=== PATIENT | female | born 1985 | race Caucasian/White ===

== ENCOUNTER → 2017-12-02 | Outpatient (CLI) | payer OTHER ==
--- NOTE | 2017-12-02 09:52 | RAD ---
Indication: Elevated liver function test Technique: Grayscale, color Doppler and spectral waveform images of the abdomen obtained. Comparison: None Findings: Visualized pancreas is within normal limits. IVC is patent. Liver is enlarged in size measuring 19 cm in craniocaudal dimension with diffusely increased echogenicity and decreased through transmission. Main portal vein is patent. No gallstones. No pericholecystic fluid or gallbladder wall thickening. CBD measures 4 mm and is within normal limits. Right kidney measures 11.3 cm in length without hydronephrosis. Spleen measures 11 cm in length and is normal in size. Left kidney measures 12 cm in length without hydronephrosis. No aortic aneurysm. Impression: 1. Mild hepatomegaly with hepatic steatosis. 2. No cholelithiasis or sonographic evidence of acute cholecystitis.
== END | disposition home or self-care (01) ==
LOC: US 07:25
PROVIDERS: ATTEND Family Medicine
DX: K76.0 Fatty (change of) liver, not elsewhere classified (principal); R16.0 Hepatomegaly, not elsewhere classified
CPT/HCPCS: 76700

== ENCOUNTER 2018-04-15 10:27 | Emergency (ER) | payer OTHER ==
[~2018-04-15] VITALS: Ht 162.6 cm; Wt 93.0 kg
[2018-04-15] MEDS ORDERED: IV NORMAL SALINE 1,000ML 1,000 ML IV SCH (11:09)
[2018-04-15] MEDS ORDERED: KETOROLAC 30 MG/ML VIAL. IV ONE (11:15)
[2018-04-15] MEDS ORDERED: ONDANSETRON PF 4 MG/2 ML VIAL. IV ONE (11:15)
[2018-04-15 11:38] LABS: BASO % 1 % (0-3); EOS # 0.2 x10^3/uL (0.0-0.7); EOS % 3 % (0-3); HEMATOCRIT 38.2 % (36.0-47.0); HEMOGLOBIN 12.9 g/dL (12.0-15.5); LYMPH # 3.4 x10^3/uL (1.0-4.8); LYMPH % 52 % (24-48); MEAN CORPUSCULAR HEMOGLOBIN 28 pg (25-35); MEAN CORPUSCULAR HGB CONC 34 g/dL (31-37); MEAN CORPUSCULAR VOLUME 83 fL (79-100); MONO # 0.4 x10^3/uL (0.0-1.1); MONO % 7 % (0-9); NEUT # 2.5 x10^3uL (1.8-7.7); NEUT % 38 % (31-73); PLATELET COUNT 143 x10^3/uL (140-400); RED BLOOD COUNT 4.61 x10^6/uL (3.50-5.40); RED CELL DISTRIBUTION WIDTH 13.8 % (11.5-14.5); WHITE BLOOD COUNT 6.5 x10^3/uL (4.0-11.0)
[2018-04-15 11:46] LABS: ALBUMIN/GLOBULIN RATIO 0.7 (1.0-1.7); CALCIUM 8.4 mg/dL (8.5-10.1); CREATININE 1.1 mg/dL (0.6-1.0); GFR 57.2; POTASSIUM 3.7 mmol/L (3.5-5.1); TOTAL BILIRUBIN 0.5 mg/dL (0.2-1.0); TOTAL PROTEIN 7.2 g/dL (6.4-8.2)
[2018-04-15 12:21] LABS: % ATYL 20 % (0-0); % BANDS 11 % (0-9); % BASOS 1 % (0-3); % EOS 1 % (0-5); % LYMPHS 28 % (24-48); % MONOS 5 % (0-10); % SEGS 34 % (35-66); PLT ESTIMATE DECREASED (ADEQUATE)
[2018-04-15] MEDS ORDERED: IOHEXOL 300 MG/ML 75 ML VIAL. IV ONE (12:30)
--- NOTE | 2018-04-15 12:46 | RAD ---
PQRS Compliance Statement: One or more of the following individualized dose reduction techniques were utilized for this examination: 1. Automated exposure control 2. Adjustment of the mA and/or kV according to patient size 3. Use of iterative reconstruction technique CT ABD PELV W/ IV CONTRST ONLY Clinical Indication: Abd pain with elevated LFT's, fever, chills, nausea, vomiting, diarrhea x 2 days. Hx: Hysterectomy, appendectomy Comparison: Abdominal ultrasound December 02, 2017. Technique: Helical CT imaging of the abdomen and pelvis is performed after 75 cc of Omnipaque 300 IV contrast. Oral contrast not given. Findings: Minimal atelectasis in the left lower lobe. Cardiac size normal. There is fatty infiltration of the liver, focal fatty sparing along the gallbladder fossa. There is hepatomegaly versus normal variant Pollo lobe, craniocaudal dimension 23.6 cm. The gallbladder, pancreas, adrenal glands, abdominal aorta, and kidneys are normal. There is a small cyst in the lower pole of the left kidney. Spleen size upper limits of normal. Stomach unremarkable. Appendix surgically absent. No dilated small bowel. No colon wall thickening. No abdominal adenopathy or free fluid. There are subcentimeter mesenteric lymph nodes. Hysterectomy. Urinary bladder is normal. No pelvic free fluid. No acute bone abnormality. IMPRESSION: 1. No acute abdominal or pelvic abnormality. 2. Fatty infiltration of the liver. 3. Hepatomegaly versus normal variant Pollo lobe. Electronically signed by: Og Pruett MD (04/15/2018 12:42 PM) [id number]
[2018-04-15 14:10] LABS: BACTERIA,URINE 0 /HPF (0-FEW); BILIRUBIN,URINE NEG (NEG); CLARITY,URINE HAZY; COLOR,URINE AMBER; GLUCOSE,URINE NEG (NEG); NITRITE,URINE NEG (NEG); RBC,URINE 0 /HPF (0-2); SQUAMOUS EPITHELIAL CELL,UR OCC /LPF; UROBILINOGEN,URINE 0.2 mg/dL (0.2 mg/dL); WBC,URINE 0 /HPF (0-4)
[2018-04-15 14:20] VITALS: BP 118/43
--- NOTE | 2018-04-15 14:43 | PHYS DOC ---
Past History Past Medical History: Hypothyroid, Other Past Surgical History: Appendectomy, Hysterectomy Alcohol Use: None Drug Use: None Adult General Chief Complaint Chief Complaint: DEHYDRATION HPI HPI Patient is a 32-year-old female who presents with complaint of severe pain all over. Patient states that every muscle in her body hurts. She also indicates that she has nausea with vomiting and diarrhea. She states the symptoms have been present for the last few days and they're just getting worse. She was seen by her primary provider a couple of days ago and had blood work obtained at that time. Patient states that she is just not able to go to work because her symptoms are so severe. She denies any actual chest pain or shortness of breath. She does not believe she has been running a fever. Review of Systems Review of Systems Constitutional: Denies fever or chills [] Respiratory: Denies cough or shortness of breath [] Cardiovascular: Denies chest pain[] GI: Complains of abdominal pain with nausea, vomiting and diarrhea[] : Denies dysuria or hematuria [] Musculoskeletal: Complains of diffuse body aches[] Neurologic: Denies headache, focal weakness or sensory changes [] All other systems were reviewed and found to be within normal limits, except as documented in this note. Current Medications Current Medications Current Medications Medications (Trade) Dose Ordered Sig/Madison Start Time Stop Time Status Last Admin Dose Admin Fentanyl Citrate (Fentanyl 2ml Vial) 50 mcg 1X ONCE 04/15/18 14:00 04/15/18 14:01 DC 04/15/18 13:34 50 MCG Iohexol (Omnipaque 300 Mg/ml) 75 ml 1X ONCE 04/15/18 12:30 04/15/18 12:31 DC 04/15/18 12:20 75 ML Ketorolac Tromethamine (Toradol) 30 mg 1X ONCE 04/15/18 11:15 04/15/18 12:17 DC 04/15/18 11:57 30 MG Ondansetron HCl (Zofran) 4 mg 1X ONCE 04/15/18 11:15 04/15/18 12:17 DC 04/15/18 11:57 4 MG Sodium Chloride 1,000 ml @ 1,000 mls/hr Q1H 04/15/18 11:09 04/15/18 12:17 DC 04/15/18 11:58 1,000 MLS/HR Allergies Allergies Allergies Coded Allergies Type Severity Reaction Last Updated Verified ibuprofen Allergy Unknown 04/15/18 Yes Uncoded Allergies Type Severity Reaction Last Updated Verified NEPROXIN Allergy Unknown 04/15/18 Physical Exam Physical Exam Constitutional: Well developed, well nourished, appears in moderate distress due to pain, non-toxic appearance. [] HENT: Normocephalic, atraumatic, bilateral external ears normal, oropharynx moist, no oral exudates, nose normal. [] Eyes: PERRLA, EOMI, conjunctiva normal, no discharge. [] Neck: Normal range of motion, no tenderness, supple, no stridor. [] Cardiovascular:Heart rate regular rhythm, no murmur [] Lungs & Thorax: Bilateral breath sounds clear to auscultation [] Abdomen: Bowel sounds normal, soft, with diffuse tenderness. [] Skin: Warm, dry, no erythema, no rash. [] Extremities: No tenderness, no cyanosis, no clubbing, ROM intact, no edema. [] Neurologic: Alert and oriented X 3, normal motor function, normal sensory function, no focal deficits noted. [] Current Patient Data Vital Signs Vital Signs Date Time Temp Pulse Resp B/P (MAP) Pulse Ox O2 Delivery O2 Flow Rate FiO2 04/15/18 13:34 22 97 Room Air 04/15/18 10:50 99.6 64 Lab Results Laboratory Tests Test 04/15/18 11:22 04/15/18 13:50 White Blood Count 6.5 x10^3/uL (4.0-11.0) Red Blood Count 4.61 x10^6/uL (3.50-5.40) Hemoglobin 12.9 g/dL (12.0-15.5) Hematocrit 38.2 % (36.0-47.0) Mean Corpuscular Volume 83 fL (79-100) Mean Corpuscular Hemoglobin 28 pg (25-35) Mean Corpuscular Hemoglobin Concent 34 g/dL (31-37) Red Cell Distribution Width 13.8 % (11.5-14.5) Platelet Count 143 x10^3/uL (140-400) Neutrophils (%) (Auto) 38 % (31-73) Lymphocytes (%) (Auto) 52 % (24-48) H Monocytes (%) (Auto) 7 % (0-9) Eosinophils (%) (Auto) 3 % (0-3) Basophils (%) (Auto) 1 % (0-3) Neutrophils # (Auto) 2.5 x10^3uL (1.8-7.7) Lymphocytes # (Auto) 3.4 x10^3/uL (1.0-4.8) Monocytes # (Auto) 0.4 x10^3/uL (0.0-1.1) Eosinophils # (Auto) 0.2 x10^3/uL (0.0-0.7) Basophils # (Auto) 0.0 x10^3/uL (0.0-0.2) Segmented Neutrophils % 34 % (35-66) L Band Neutrophils % 11 % (0-9) H Lymphocytes % 28 % (24-48) Atypical Lymphocytes % (Manual) 20 % (0-0) H Monocytes % 5 % (0-10) Eosinophils % 1 % (0-5) Basophils % 1 % (0-3) Platelet Estimate Decreased (ADEQUATE) Sodium Level 136 mmol/L (136-145) Potassium Level 3.7 mmol/L (3.5-5.1) Chloride Level 101 mmol/L (98-107) Carbon Dioxide Level 24 mmol/L (21-32) Anion Gap 11 (6-14) Blood Urea Nitrogen 10 mg/dL (7-20) Creatinine 1.1 mg/dL (0.6-1.0) H Estimated GFR (Cockcroft-Gault) 57.2 BUN/Creatinine Ratio 9 (6-20) Glucose Level 94 mg/dL (70-99) Calcium Level 8.4 mg/dL (8.5-10.1) L Magnesium Level 2.0 mg/dL (1.8-2.4) Total Bilirubin 0.5 mg/dL (0.2-1.0) Aspartate Amino Transferase (AST) 179 U/L (15-37) H Alanine Aminotransferase (ALT) 290 U/L (14-59) H Alkaline Phosphatase 136 U/L (46-116) H Creatine Kinase 97 U/L (26-192) Total Protein 7.2 g/dL (6.4-8.2) Albumin 3.0 g/dL (3.4-5.0) L Albumin/Globulin Ratio 0.7 (1.0-1.7) L Lipase 161 U/L (73-393) Urine Collection Type Unknown Urine Color Kathrine Urine Clarity Hazy Urine pH 5.5 Urine Specific Perry <=1.005 Urine Protein Trace (NEG-TRACE) Urine Glucose (UA) Neg mg/dL (NEG) Urine Ketones (Stick) Neg mg/dL (NEG) Urine Blood Neg (NEG) Urine Nitrite Neg (NEG) Urine Bilirubin Neg (NEG) Urine Urobilinogen Dipstick 0.2 mg/dL (0.2 mg/dL) Urine Leukocyte Esterase Neg (NEG) Urine RBC 0 /HPF (0-2) Urine WBC 0 /HPF (0-4) Urine Squamous Epithelial Cells Occ /LPF Urine Bacteria 0 /HPF (0-FEW) EKG EKG [] Radiology/Procedures Radiology/Procedures [] Impressions: CT of the abdomen and pelvis demonstrates no acute process Course & Med Decision Making Course & Med Decision Making Pertinent Labs and Imaging studies reviewed. (See chart for details) [] Dragon Disclaimer Dragon Disclaimer This electronic medical record was generated, in whole or in part, using a voice recognition dictation system. Departure Departure: Impression: Primary Impression: Enteritis Additional Impression: Diffuse pain Disposition: HOME, SELF-CARE Condition: STABLE Referrals: MARK PURI MD (PCP) Patient Instructions: Diarrhea, Nausea and Vomiting Additional Instructions: Take prescribed medications as directed and follow-up with your primary care provider in the next few days. Problem Qualifiers ZACH MEIER Jr. DO Apr 15, 2018 14:43
== END 2018-04-15 14:50 | disposition home or self-care (01) ==
LOC: ER 10:27
DX: K52.9 Noninfective gastroenteritis and colitis, unspecified (principal); M79.1 Myalgia; E03.9 Hypothyroidism, unspecified; Z90.89 Acquired absence of other organs; Z90.710 Acquired absence of both cervix and uterus; Z88.6 Allergy status to analgesic agent
CPT/HCPCS: 36415; 74177; 80053; 81001; 82550; 83690; 83735; 85007; 85025; 96361; 96374; 96375; 99285; J1885; J2405; J3010; Q9967; J7030

== ENCOUNTER 2019-04-27 14:40 | Emergency (ER) | payer BC, OTHER ==
[~2019-04-27] VITALS: Ht 162.6 cm; Wt 96.0 kg
[2019-04-27] MEDS ORDERED: IV NORMAL SALINE 1,000ML 1,000 ML IV SCH (14:55)
--- NOTE | 2019-04-27 15:05 | PHYS DOC ---
Past History Past Medical History: Hypothyroid, Other Past Surgical History: Appendectomy, Hysterectomy Additional Past Surgical Histo: laparoscopic lysis of adhesions Smoking: Quit Greater Than 1 Year (use electronic cigarettes now) Alcohol Use: None Drug Use: None Adult General Chief Complaint Chief Complaint: ABDOMINAL PAIN [facility] HPI Patient is a 33-year-old female who presents to the emergency department from [facility] office for "a possible bowel obstruction. The patient states that she had been having regular bowel movements, until she developed some left lower quadrant abdominal pain, a few days ago. She went to her PCP, who took an x-ray, and give her some milk of magnesia yesterday. When this did not improve her symptoms, she went back today, had a repeat x-ray and was sent to the emergency department for possibly being "obstructed". The patient has had some nausea but no vomiting. She has not had any fevers or chills, or urinary symptoms, numbness, or focal weakness. There are no alleviating or exacerbating factors to her symptoms otherwise. She has not had any black or bloody stools. She has not had any recent diarrhea and had been having normal bowel movements until her symptoms began. She has not had a good bowel movement in several days. Review of Systems Review of Systems Constitutional: Denies fever or chills [] Eyes: Denies change in visual acuity, redness, or eye pain [] HENT: Denies nasal congestion or sore throat [] Respiratory: Denies cough or shortness of breath [] Cardiovascular:The patient denies any shortness of breath, chest pain, palpitations, or orthopnea [] GI: No additional information not addressed in HPI [] : Denies dysuria or hematuria [] Musculoskeletal: Denies back pain or joint pain [] Integument: Denies rash or skin lesions [] Neurologic: Denies headache, focal weakness or sensory changes [] Endocrine: Denies polyuria or polydipsia [] All other systems were reviewed and found to be within normal limits, except as documented in this note. Current Medications Current Medications Current Medications Medications (Trade) Dose Ordered Sig/Madison Start Time Stop Time Status Last Admin Dose Admin Sodium Chloride 1,000 ml @ 1,000 mls/hr Q1H 04/27/19 14:55 04/27/19 15:54 Allergies Allergies Allergies Coded Allergies Type Severity Reaction Last Updated Verified ibuprofen Allergy Unknown 04/15/18 Yes Uncoded Allergies Type Severity Reaction Last Updated Verified NEPROXIN Allergy Unknown 04/15/18 Physical Exam Physical Exam PHYSICAL EXAM: CONSTITUTIONAL: Well developed, well nourished HEAD: normocephalic, atraumatic EENT: PERRL, EOMI. Conjunctivae normal color, sclerae non-icteric; moist mucous membranes. NECK: Supple, non-tender; no meningismus. LUNGS: Lungs CTA, breathing even and unlabored. Normal air movement. HEART: Regular rate and rhythm, no murmur CHEST: No deformity; non-tender ABDOMEN: The abdomen is soft, there is tenderness to palpation diffusely in the left mid and lower abdomen, without rebound or guarding, the remainder the abdomen is relatively soft and non-tender, no masses or bruits. Normal bowel sounds are present. EXTREM: Normal ROM; no deformity, no calf tenderness. Normal pulses palpable in all extremities. There is no pedal edema. SKIN: No rash; no diaphoresis NEURO: Alert; normal speech and cognition; CN's grossly intact; strength grossly intact without focal deficit. BACK: No CVA TTP. Current Patient Data Vital Signs Vital Signs Date Time Temp Pulse Resp B/P (MAP) Pulse Ox O2 Delivery O2 Flow Rate FiO2 04/27/19 14:47 98.0 88 16 98 Room Air 04/27/19 14:46 138/105 (116) Lab Results Laboratory Tests Test 04/27/19 15:04 04/27/19 16:17 White Blood Count 7.9 x10^3/uL Red Blood Count 5.26 x10^6/uL Hemoglobin 15.2 g/dL Hematocrit 45.0 % Mean Corpuscular Volume 86 fL Mean Corpuscular Hemoglobin 29 pg Mean Corpuscular Hemoglobin Concent 34 g/dL Red Cell Distribution Width 13.1 % Platelet Count 288 x10^3/uL Neutrophils (%) (Auto) 53 % Lymphocytes (%) (Auto) 39 % Monocytes (%) (Auto) 6 % Eosinophils (%) (Auto) 2 % Basophils (%) (Auto) 1 % Neutrophils # (Auto) 4.2 x10^3uL Lymphocytes # (Auto) 3.1 x10^3/uL Monocytes # (Auto) 0.5 x10^3/uL Eosinophils # (Auto) 0.1 x10^3/uL Basophils # (Auto) 0.1 x10^3/uL Sodium Level 140 mmol/L Potassium Level 3.9 mmol/L Chloride Level 104 mmol/L Carbon Dioxide Level 29 mmol/L Anion Gap 7 Blood Urea Nitrogen 12 mg/dL Creatinine 1.0 mg/dL Estimated GFR (Cockcroft-Gault) 63.5 BUN/Creatinine Ratio 12 Glucose Level 121 mg/dL Calcium Level 9.7 mg/dL Total Bilirubin 0.3 mg/dL Aspartate Amino Transf (AST/SGOT) 30 U/L Alanine Aminotransferase (ALT/SGPT) 56 U/L Alkaline Phosphatase 80 U/L Total Protein 9.0 g/dL Albumin 4.4 g/dL Albumin/Globulin Ratio 1.0 Lipase 195 U/L Urine Collection Type Unknown Urine Color Yellow Urine Clarity Clear Urine pH 6.0 Urine Specific Exira 1.015 Urine Protein Neg Urine Glucose (UA) Neg mg/dL Urine Ketones (Stick) Neg mg/dL Urine Blood Trace Urine Nitrite Neg Urine Bilirubin Neg Urine Urobilinogen Dipstick 0.2 mg/dL Urine Leukocyte Esterase Neg Urine RBC 1-2 /HPF Urine WBC 1-4 /HPF Urine Squamous Epithelial Cells Occ /LPF Urine Bacteria Few /HPF Current Medications Medications (Trade) Dose Ordered Sig/Madison Route PRN Reason Start Time Stop Time Status Last Admin Dose Admin Sodium Chloride 1,000 ml @ 1,000 mls/hr Q1H IV 04/27/19 14:55 04/27/19 15:54 DC 04/27/19 15:09 Iohexol (Omnipaque 300 Mg/ml) 75 ml 1X ONCE IV 04/27/19 15:45 04/27/19 15:46 DC 04/27/19 15:35 Ketorolac Tromethamine (Toradol 30mg Vial) 30 mg STK-MED ONCE .ROUTE 04/27/19 16:52 04/27/19 16:53 DC EKG EKG [] Radiology/Procedures Radiology/Procedures []PROCEDURE: CT ABD PELV W/ IV CONTRST ONLY Study: CT abdomen/pelvis with intravenous contrast Indication: Left lower quadrant pain. Comparison: CT abdomen/pelvis 04/15/2018 Technique: Helical CT imaging performed of the abdomen and pelvis after the intravenous administration of 75 cc Omnipaque 300 contrast. Sagittal and coronal reformats were obtained. Findings: Asymmetric elevation of the left hemidiaphragm. Hepatic steatosis. Unremarkable pancreas, spleen and adrenal glands. Redemonstrated small left renal cystic foci. The urinary bladder is unremarkable. Unremarkable stomach and small bowel. Unremarkable colon.A the appendix is not visualized and is presumed surgically absent. The uterus is not visualized as well. No adnexal mass. Unremarkable major vascular structures. Unchanged minimal retrolisthesis of L5 on S1 and mild disc space height loss at this level. Redemonstrated disc bulging at L4-L5. Mild haziness of the left upper quadrant fat surrounding some mildly prominent mesenteric lymph nodes. Linen Attendant lymph node on image 39 series 2 measuring exactly 1 cm in short axis dimension compared to 0.8 cm previously. Additional lymph node just cephalad on image 37 measures just under 1 cm in short axis dimension compared to 0.7 cm previously. Impression: 1. Mild interval enlargement of some left upper quadrant mesenteric lymph nodes measuring just at 1 cm in short axis dimension. There also appears to be some faint mesenteric fatty edema around these lymph nodes. The adjacent small bowel and other regional organs are without abnormal findings to suggest these lymph nodes to be reactive. Though unusual given patient age, mild mesenteric adenitis could be considered. No lymph node enlargement elsewhere. 2. Hepatic steatosis. Course & Med Decision Making Course & Med Decision Making Pertinent Labs and Imaging studies reviewed. (See chart for details) []The patient's condition remains stable. I discussed the test results with the patient, the uncertain etiology of her symptoms, although mesenteric adenitis as a possible explanation, we discussed the need for close PCP follow-up for further evaluation especially if symptoms persist, and return precautions were discussed in detail. Dragon Disclaimer Dragon Disclaimer This electronic medical record was generated, in whole or in part, using a voice recognition dictation system. Departure Departure: Impression: Primary Impression: Abdominal pain Additional Impression: Mesenteric adenitis Disposition: HOME, SELF-CARE Condition: STABLE Referrals: MARK PURI MD (PCP) Patient Instructions: Abdominal Pain, Mesenteric Adenitis Scripts Diclofenac Sodium (DICLOFENAC SODIUM) 50 Mg Tablet.dr 1 TAB PO BID PRN for PAIN, #20 TAB 0 Refills Prov: LEIDY DONATO MD 04/27/19 Problem Qualifiers LEIDY DONATO MD Apr 27, 2019 15:05
[2019-04-27 15:17] LABS: BASO # 0.1 x10^3/uL (0.0-0.2); BASO % 1 % (0-3); EOS # 0.1 x10^3/uL (0.0-0.7); EOS % 2 % (0-3); HEMOGLOBIN 15.2 g/dL (12.0-15.5); LYMPH # 3.1 x10^3/uL (1.0-4.8); LYMPH % 39 % (24-48); MEAN CORPUSCULAR HEMOGLOBIN 29 pg (25-35); MEAN CORPUSCULAR HGB CONC 34 g/dL (31-37); MEAN CORPUSCULAR VOLUME 86 fL (79-100); MONO # 0.5 x10^3/uL (0.0-1.1); MONO % 6 % (0-9); NEUT # 4.2 x10^3uL (1.8-7.7); NEUT % 53 % (31-73); PLATELET COUNT 288 x10^3/uL (140-400); RED BLOOD COUNT 5.26 x10^6/uL (3.50-5.40); RED CELL DISTRIBUTION WIDTH 13.1 % (11.5-14.5); WHITE BLOOD COUNT 7.9 x10^3/uL (4.0-11.0)
[2019-04-27 15:26] LABS: ALBUMIN 4.4 g/dL (3.4-5.0); CALCIUM 9.7 mg/dL (8.5-10.1); GFR 63.5; POTASSIUM 3.9 mmol/L (3.5-5.1); TOTAL BILIRUBIN 0.3 mg/dL (0.2-1.0)
[2019-04-27] MEDS ORDERED: IOHEXOL 300 MG/ML 75 ML VIAL. IV ONE (15:45)
--- NOTE | 2019-04-27 16:11 | RAD ---
Study: CT abdomen/pelvis with intravenous contrast Indication: Left lower quadrant pain. Comparison: CT abdomen/pelvis 04/15/2018 Technique: Helical CT imaging performed of the abdomen and pelvis after the intravenous administration of 75 cc Omnipaque 300 contrast. Sagittal and coronal reformats were obtained. Findings: Asymmetric elevation of the left hemidiaphragm. Hepatic steatosis. Unremarkable pancreas, spleen and adrenal glands. Redemonstrated small left renal cystic foci. The urinary bladder is unremarkable. Unremarkable stomach and small bowel. Unremarkable colon.A the appendix is not visualized and is presumed surgically absent. The uterus is not visualized as well. No adnexal mass. Unremarkable major vascular structures. Unchanged minimal retrolisthesis of L5 on S1 and mild disc space height loss at this level. Redemonstrated disc bulging at L4-L5. Mild haziness of the left upper quadrant fat surrounding some mildly prominent mesenteric lymph nodes. Vaccine Specialist lymph node on image 39 series 2 measuring exactly 1 cm in short axis dimension compared to 0.8 cm previously. Additional lymph node just cephalad on image 37 measures just under 1 cm in short axis dimension compared to 0.7 cm previously. Impression: 1. Mild interval enlargement of some left upper quadrant mesenteric lymph nodes measuring just at 1 cm in short axis dimension. There also appears to be some faint mesenteric fatty edema around these lymph nodes. The adjacent small bowel and other regional organs are without abnormal findings to suggest these lymph nodes to be reactive. Though unusual given patient age, mild mesenteric adenitis could be considered. No lymph node enlargement elsewhere. 2. Hepatic steatosis. Electronically signed by: JESSICA LICEA MD (04/27/2019 4:08 PM) [id number]
[2019-04-27 16:39] LABS: BILIRUBIN,URINE NEG (NEG); CLARITY,URINE CLEAR; COLOR,URINE YELLOW; GLUCOSE,URINE NEG (NEG); UROBILINOGEN,URINE 0.2 mg/dL (0.2 mg/dL)
[2019-04-27 16:40] LABS: NITRITE,URINE NEG (NEG)
[2019-04-27 16:48] LABS: BACTERIA,URINE FEW /HPF (0-FEW); SQUAMOUS EPITHELIAL CELL,UR OCC /LPF
[2019-04-27] MEDS ORDERED: KETOROLAC 30 MG/ML VIAL. ONE (16:52)
[2019-04-27] MEDS ORDERED: DICL50TA4 PO (17:18)
[2019-04-27] MEDS ORDERED: CIPR500T PO (17:32)
[2019-04-27 17:40] VITALS: BP 145/94
== END 2019-04-27 17:42 | disposition home or self-care (01) ==
LOC: ER 14:40
DX: I88.0 Nonspecific mesenteric lymphadenitis (principal); E03.9 Hypothyroidism, unspecified; Z90.49 Acquired absence of other specified parts of digestive tract; Z90.710 Acquired absence of both cervix and uterus; Z87.891 Personal history of nicotine dependence; Z88.6 Allergy status to analgesic agent
CPT/HCPCS: 36415; 74177; 80053; 81001; 83690; 85025; 99285; Q9967; J7030

== ENCOUNTER 2019-04-29 14:42 | Inpatient (IN) | payer BC ==
[~2019-04-29] VITALS: Ht 162.6 cm; Wt 96.8 kg
[~2019-04-29 14:42] MED LIST: CIPR500T PO; DICL50TA4 PO
[2019-04-29] MEDS ORDERED: MORPHINE SULFATE 4 MG/ML DISP.SYRIN. IV PRN (15:00)
[2019-04-29] MEDS: IV NORMAL SALINE 1,000ML 1,000 ML IV SCH ×2 (15:00→23:50)
[2019-04-29 15:03] VITALS: BP 130/86
[2019-04-29] MEDS: ONDANSETRON PF 4 MG/2 ML VIAL. IV PRN ×2 (15:34→23:50)
[2019-04-29 15:37] LABS: BASO % 0 % (0-3); EOS # 0.1 x10^3/uL (0.0-0.7); EOS % 1 % (0-3); HEMATOCRIT 41.5 % (36.0-47.0); HEMOGLOBIN 14.1 g/dL (12.0-15.5); LYMPH # 1.1 x10^3/uL (1.0-4.8); LYMPH % 13 % (24-48); MEAN CORPUSCULAR HEMOGLOBIN 29 pg (25-35); MEAN CORPUSCULAR HGB CONC 34 g/dL (31-37); MEAN CORPUSCULAR VOLUME 85 fL (79-100); MONO # 0.2 x10^3/uL (0.0-1.1); MONO % 3 % (0-9); NEUT % 83 % (31-73); PLATELET COUNT 230 x10^3/uL (140-400); RED BLOOD COUNT 4.87 x10^6/uL (3.50-5.40); RED CELL DISTRIBUTION WIDTH 13.1 % (11.5-14.5); WHITE BLOOD COUNT 8.5 x10^3/uL (4.0-11.0)
[2019-04-29 15:49] LABS: ALBUMIN 4.1 g/dL (3.4-5.0); ALBUMIN/GLOBULIN RATIO 0.9 (1.0-1.7); CALCIUM 9.1 mg/dL (8.5-10.1); GFR 63.5; POTASSIUM 4.1 mmol/L (3.5-5.1); TOTAL BILIRUBIN 0.4 mg/dL (0.2-1.0); TOTAL PROTEIN 8.5 g/dL (6.4-8.2)
[2019-04-29] MEDS ORDERED: BISACODYL TAB 5 MG TABLET.DR. PO PRN (16:00)
--- NOTE | 2019-04-29 16:14 | RAD ---
Study: CT abdomen and pelvis without contrast Indication: Extreme left upper quadrant pain. Abdominal distention. Comparison: Most recently on 04/27/2019 Technique: Helical CT imaging performed of the abdomen and pelvis without the use of intravenous contrast. Sagittal and coronal reformats were obtained. Findings: Similar size and number of mildly prominent left upper quadrant mesenteric lymph nodes with surrounding mesenteric fat stranding. The degree of fat stranding does appear more pronounced when comparing coronal image 46 series 4 on the current study to coronal image 33 series 3 on the prior. Room Service Waiter/Waitress lymph node on image 63 series 2 again measuring approximately 1 cm in short axis dimension. No newly seen free fluid or air. Nonobstructed bowel. No obstructing nephrolithiasis with the collecting system normal in caliber. Diffuse hepatic steatosis. The spleen is unremarkable, as are the adrenal glands and pancreas. No abnormality of the visualized lungs or heart. Normal caliber of the major vascular structures. The uterus is surgically absent, as is the appendix. Unchanged osseous structures. Impression: 1. Again seen are some mildly prominent left upper quadrant mesenteric lymph nodes that are similar in size and number though there does appear to have been some increase in the degree of surrounding mesenteric fat stranding. The appearance is again suggestive of a nonspecific mesenteric adenitis and there is no newly seen abnormality of the adjacent organs. Note is made that though a malignant process can cause prominent mesenteric lymph nodes, the acuity of the patient's symptoms and the absence of lymphadenopathy elsewhere makes this unlikely. 2. Hepatic steatosis. Electronically signed by: JESSICA LICEA MD (04/29/2019 4:11 PM) [id number]
--- NOTE | 2019-04-29 16:19 | NUR ---
Pt direct admit to rm 117 for abdominal pain that started in left lower quadrant on Friday and has spread throughout her entire abdomen. Pt vitals, head to toe and medical hx completed. Pt given unit routines.
[2019-04-29] MEDS ORDERED: SIMETHICONE 80 MG TAB.CHEW PO PRN (16:45)
[2019-04-29] MEDS ORDERED: MAGNESIUM CITRATE 296 ML SOLUTION. PO PRN (17:15)
[2019-04-29] MEDS ORDERED: CALCIUM CARBONATE 500 MG TAB.CHEW PO PRN (17:15)
[2019-04-29] MEDS ORDERED: OMEP40CA5 PO (17:48)
[2019-04-29] MEDS ORDERED: LEVO75TA5 PO (17:48)
[2019-04-29] MEDS: HYDROmorphone PF 1 MG/ML DISP.SYRIN IV PRN (18:16)
[2019-04-29] MEDS ORDERED: PROCHLORPERAZINE 10 MG/2 ML VIAL. IV PRN (19:30)
[2019-04-29 19:44] VITALS: BP 109/66
[2019-04-29 22:29] LABS: BACTERIA,URINE MOD /HPF (0-FEW); BILIRUBIN,URINE NEG (NEG); CLARITY,URINE HAZY; COLOR,URINE YELLOW; GLUCOSE,URINE NEG (NEG); NITRITE,URINE NEG (NEG); RBC,URINE 0 /HPF (0-2); SQUAMOUS EPITHELIAL CELL,UR OCC /LPF; UROBILINOGEN,URINE 0.2 mg/dL (0.2 mg/dL)
[2019-04-29 23:47] VITALS: BP 115/71
[2019-04-29] MEDS: HYDROmorphone PF 2 MG/ML VIAL IV PRN (23:51)
[2019-04-30] MEDS: HYDROmorphone PF 2 MG/ML VIAL IV PRN (03:39)
[2019-04-30 03:51] VITALS: BP 117/73
[2019-04-30 06:13] LABS: CALCIUM 8.2 mg/dL (8.5-10.1); GFR 63.5; POTASSIUM 5.2 mmol/L (3.5-5.1)
[2019-04-30] MEDS: ONDANSETRON PF 4 MG/2 ML VIAL. IV PRN (06:33)
[2019-04-30] MEDS: HYDROmorphone PF 1 MG/ML DISP.SYRIN IV PRN ×4 (06:34→15:19)
[2019-04-30 06:45] LABS: BASO % 0 % (0-3); EOS % 0 % (0-3); HEMATOCRIT 37.2 % (36.0-47.0); HEMOGLOBIN 12.5 g/dL (12.0-15.5); LYMPH % 12 % (24-48); MEAN CORPUSCULAR HEMOGLOBIN 29 pg (25-35); MEAN CORPUSCULAR HGB CONC 34 g/dL (31-37); MEAN CORPUSCULAR VOLUME 86 fL (79-100); MONO # 0.4 x10^3/uL (0.0-1.1); MONO % 5 % (0-9); NEUT # 6.6 x10^3uL (1.8-7.7); NEUT % 83 % (31-73); PLATELET COUNT 233 x10^3/uL (140-400); RED BLOOD COUNT 4.32 x10^6/uL (3.50-5.40); RED CELL DISTRIBUTION WIDTH 13.3 % (11.5-14.5)
[2019-04-30 07:05] VITALS: BP 108/74
--- NOTE | 2019-04-30 09:06 | RAD ---
Indication:Severe abdominal pain. TECHNIQUE: Grayscale, color Doppler and spectral waveform is of the abdomen obtained. COMPARISON: CT from 04/29/2019. FINDINGS: Pancreas, IVC and aorta not visualized due to overlying bowel gas. No gallstones, pericholecystic fluid or gallbladder wall thickening. CBD not visualized. Liver measures 16 cm in longest dimension with diffusely increased echogenicity and decreased through transmission. Right kidney measures 10.2 cm in length without hydronephrosis. Spleen measures 12 cm in length and is normal in size. Left kidney measures 9.6 m in length without hydronephrosis. IMPRESSION: Subpleural exam due to body habitus and bowel gas. 1. No cholelithiasis. 2. Hepatic steatosis. Electronically signed by: Ac Falcon DO (04/30/2019 9:03 AM) [facility]
[2019-04-30] MEDS ORDERED: PANTOPRAZOLE 40 MG TABLET. PO SCH (10:00)
--- NOTE | 2019-04-30 10:14 | PN ---
DATE: SUBJECTIVE: A 33-year-old female with 4-day history of severe epigastric and right upper and left upper quadrant pain with some bloating, distention, pain, probable 9/10 and sometimes 10/10. The patient had some nausea so far. Her CT scan and abdominal ultrasound had been basically unremarkable, but the patient is in bed with withering pain and writhing in the bed itself. OBJECTIVE: VITAL SIGNS: The patient's blood pressure 110/70, respiratory rate 14, pulse 70, afebrile, 2 liters at 93%. The patient otherwise continued to be monitored carefully. We are going to do a PIPIDA scan on her and make further evaluation on her as indicated per those results. IMPRESSION: Severe abdominal epigastric pain, requiring IV pain medication. Workup continues. MARK PURI MD DR: REINALDO/marielle JOB#: [id number] / [id number]
--- NOTE | 2019-04-30 10:19 | RAD ---
CHEST AP ONLY History: Wheezing. Comparison: CT abdomen and pelvis April 29, 2019 Findings: Low lung volumes. Patchy central and left basilar opacity. Normal heart size. Elevation of the left hemidiaphragm. Gaseous distention of the stomach. Impression: 1. Low lung volumes with patchy central and left basilar opacities, most likely subsegmental atelectasis. Recommend continued follow-up to exclude developing consolidations. 2. Increased gaseous distention of the stomach. Electronically signed by: Kingsley Sifuentes DO (04/30/2019 10:16 AM) [id number]
[2019-04-30] MEDS ORDERED: SINCALIDE IV ONE (11:00)
[2019-04-30] MEDS ORDERED: NORMAL SALINE IV ONE (11:00)
[2019-04-30] MEDS: IV NORMAL SALINE 1,000ML 1,000 ML IV SCH (11:00)
--- NOTE | 2019-04-30 11:16 | NUR ---
Bundle Clerk assessed patient back in radiology due to patient having respirations of 10 per minute, 02 stat of 88% while laying flat with NC at 02 running at 2l. Patient appeared drowsy but awoke to name and answered questions appropriately. Patient's head was elevated with pillow and o2 increased to 3l, patient's vitals were then assessed and taken and results were 126/89, PULSE 87 AND 02 92%, respirations 12. Patient remains in radiology for completion of HIDA scan at this time.
[2019-04-30 11:27] VITALS: BP 126/89
--- NOTE | 2019-04-30 12:38 | RAD ---
EXAM: Nuclear hepatobiliary scan. HISTORY: Pain. TECHNIQUE: Following intravenous administration of 5.3 mCi Tc 99m Choletec, anterior images of the abdomen were obtained at five minute intervals through one hour. Subsequently, 1.94 mcg Kinevac was administered and additional images to assess gallbladder ejection fraction were obtained. FINDINGS: There is prompt radiotracer uptake by the liver. No focal defect is seen. There is normal excretion into the biliary tree. The gallbladder is visualized within 5 minutes and there is free flow into the duodenum. The gallbladder ejection fraction is 9%. IMPRESSION: Decrease gallbladder ejection fraction of 9%. Electronically signed by: Lali Alvarez MD (04/30/2019 12:35 PM) [id number]
--- NOTE | 2019-04-30 14:07 | NUR ---
Discharge Note: DEMETRIUS SILVESTRE Discharge instructions and discharge home medications reviewed with Patient and a copy given. All questions have been answered and understanding verbalized. Patient is being transferred to [facility] for further treatment. Nurse exchange report given to Ronald LARIOS on [facility]. Patient discharged to [facility], family notified via telephone per patient request.
[2019-04-30 14:11] VITALS: BP 116/71
== END 2019-04-30 15:57 | disposition short-term general hospital (02) | DRG 394 ==
LOC: 1 SOUTH 14:42
PROVIDERS: ADMIT Family Medicine; ATTEND Family Medicine
DX: I88.0 Nonspecific mesenteric lymphadenitis (principal); K80.10 Calculus of gallbladder with chronic cholecystitis without obstruction; R10.9 Unspecified abdominal pain; Z79.899 Other long term (current) drug therapy
CPT/HCPCS: 36415; 71045; 74176; 74177; 76700; 78227; 80048; 80053; 81001; 82150; 83605; 83690; 85025; 85379; 87086; 87186; A9537; J0780; J1170; J2270; J2405; J2805; J3010; Q9967; J7030

== ENCOUNTER 2019-08-24 07:00 | Emergency (ER) | payer BC ==
[~2019-08-24] VITALS: Ht 162.6 cm; Wt 96.0 kg
[~2019-08-24 07:00] MED LIST changes: +LEVO75TA5 PO; +OMEP40CA45 PO
[2019-08-24 07:51] LABS: BASO % 0 % (0-3); EOS # 0.2 x10^3/uL (0.0-0.7); EOS % 3 % (0-3); HEMATOCRIT 42.3 % (36.0-47.0); HEMOGLOBIN 14.4 g/dL (12.0-15.5); LYMPH # 2.2 x10^3/uL (1.0-4.8); LYMPH % 34 % (24-48); MEAN CORPUSCULAR HEMOGLOBIN 29 pg (25-35); MEAN CORPUSCULAR HGB CONC 34 g/dL (31-37); MEAN CORPUSCULAR VOLUME 84 fL (79-100); MONO # 0.3 x10^3/uL (0.0-1.1); MONO % 5 % (0-9); NEUT # 3.7 x10^3uL (1.8-7.7); NEUT % 57 % (31-73); PLATELET COUNT 254 x10^3/uL (140-400); RED BLOOD COUNT 5.01 x10^6/uL (3.50-5.40); RED CELL DISTRIBUTION WIDTH 12.9 % (11.5-14.5); WHITE BLOOD COUNT 6.4 x10^3/uL (4.0-11.0)
[2019-08-24 07:52] LABS: CALCIUM 8.8 mg/dL (8.5-10.1); CREATININE 0.8 mg/dL (0.6-1.0); GFR 82.1; POTASSIUM 4.3 mmol/L (3.5-5.1)
[2019-08-24 07:58] LABS: ALBUMIN 3.9 g/dL (3.4-5.0); ALBUMIN/GLOBULIN RATIO 0.9 (1.0-1.7); TOTAL BILIRUBIN 0.3 mg/dL (0.2-1.0); TOTAL PROTEIN 8.1 g/dL (6.4-8.2)
[2019-08-24] MEDS ORDERED: LIDO:MAALOX 1:1 20 ML SINGLE DOSE. PO ONE (08:00)
[2019-08-24] MEDS ORDERED: ONDANSETRON PF 4 MG/2 ML VIAL. IVP ONE (08:00)
[2019-08-24] MEDS ORDERED: FAMOTIDINE 20 MG/2 ML VIAL IVP ONE (08:00)
[2019-08-24 08:01] LABS: BILIRUBIN,URINE NEG (NEG); CLARITY,URINE HAZY; COLOR,URINE YELLOW; GLUCOSE,URINE NEG (NEG)
[2019-08-24 08:02] LABS: BACTERIA,URINE FEW /HPF (0-FEW); HYALINE CASTS, URINE OCC /HPF; NITRITE,URINE NEG (NEG); SQUAMOUS EPITHELIAL CELL,UR FEW /LPF; UROBILINOGEN,URINE 0.2 mg/dL (0.2 mg/dL)
[2019-08-24 08:03] LABS: GRANULAR CASTS,URINE OCC /HPF
[2019-08-24 08:05] LABS: YEAST,URINE PRESENT /HPF
--- NOTE | 2019-08-24 08:19 | PHYS DOC ---
Past History Past Medical History: Depression, Hypothyroid, Other Past Surgical History: Appendectomy, Cholecystectomy, Hysterectomy Additional Past Surgical Histo: laparoscopic lysis of adhesions Smoking: Quit Greater Than 1 Year Additional Smoking Information: pt vapes Alcohol Use: None Drug Use: None Adult General Chief Complaint Chief Complaint: ABDOMINAL PAIN HPI HPI Patient is a 33-year-old female with history of GERD who presents with midepigastric pain 5 days. Patient intermittent initially but now is continuous for the past 2 days. Patient described a sharp pop and since which radiates into her back on occasion. Pain is worse with food and palpation but is not associated nausea vomiting. No hematemesis coffee-ground emesis, melena or bloody stools. No urinary frequency urgency or burning. No urinary frequency urgency or burning. Previous cholecystectomy and hysterectomy. No other acute symptoms or complaints.[] Review of Systems Review of Systems Review symptoms as per history of present illness. All other review symptoms are negative. All other systems were reviewed and found to be within normal limits, except as documented in this note. Current Medications Current Medications Current Medications Medications (Trade) Dose Ordered Sig/[place] Start Time Stop Time Status Last Admin Dose Admin Famotidine (Pepcid Vial) 20 mg 1X ONCE 08/24/19 08:00 08/24/19 08:01 DC 08/24/19 08:13 20 MG Multi-Ingredient Mouthwash/Gargle (Gi Cocktail) 20 ml 1X ONCE 08/24/19 08:00 08/24/19 08:01 DC 08/24/19 08:12 20 ML Ondansetron HCl (Zofran) 4 mg 1X ONCE 08/24/19 08:00 08/24/19 08:01 DC 08/24/19 08:12 4 MG Allergies Allergies Allergies Coded Allergies Type Severity Reaction Last Updated Verified ibuprofen Allergy Intermediate 04/30/19 Yes naproxen Allergy Intermediate 04/30/19 Yes Physical Exam Physical Exam Constitutional: Well developed, well nourished, moderate distress secondary to pain.[] HENT: Normocephalic, atraumatic, bilateral external ears normal, oropharynx moist, no oral exudates, nose normal. [] Eyes: PERRLA, EOMI, conjunctiva normal, no discharge. [] Neck: Normal range of motion, no tenderness, supple. [] Cardiovascular:Heart rate regular rhythm, no murmur [] Lungs & Thorax: Bilateral breath sounds clear to auscultation [] Abdomen: Bowel sounds normal, soft, epigastric pain/tenderness. [] Skin: Warm, dry, no erythema, no rash. [] Back: No tenderness. [] Extremities: No tenderness, no edema. [] Neurologic: Alert and oriented X 3, normal motor function, normal sensory function, no focal deficits noted. [] Psychologic: Affect normal, judgement normal, mood normal. [] Current Patient Data Vital Signs Vital Signs Date Time Temp Pulse Resp B/P (MAP) Pulse Ox O2 Delivery O2 Flow Rate FiO2 08/24/19 08:15 89 16 147/101 (116) 97 Room Air 08/24/19 07:13 98.9 Lab Results Laboratory Tests Test 08/24/19 07:05 08/24/19 07:23 Urine Collection Type Unknown Urine Color Yellow Urine Clarity Hazy Urine pH 5.0 Urine Specific [place] >=1.030 Urine Protein Neg (NEG-TRACE) Urine Glucose (UA) Neg mg/dL (NEG) Urine Ketones (Stick) Neg mg/dL (NEG) Urine Blood Neg (NEG) Urine Nitrite Neg (NEG) Urine Bilirubin Neg (NEG) Urine Urobilinogen Dipstick 0.2 mg/dL (0.2 mg/dL) Urine Leukocyte Esterase Neg (NEG) Urine RBC 1-2 /HPF (0-2) Urine WBC 1-4 /HPF (0-4) Urine Squamous Epithelial Cells Few /LPF Urine Bacteria Few /HPF (0-FEW) Urine Hyaline Casts Occ /HPF Urine Granular Casts Occ /HPF Urine Mucus Mod /LPF Urine Yeast Present /HPF White Blood Count 6.4 x10^3/uL (4.0-11.0) Red Blood Count 5.01 x10^6/uL (3.50-5.40) Hemoglobin 14.4 g/dL (12.0-15.5) Hematocrit 42.3 % (36.0-47.0) Mean Corpuscular Volume 84 fL (79-100) Mean Corpuscular Hemoglobin 29 pg (25-35) Mean Corpuscular Hemoglobin Concent 34 g/dL (31-37) Red Cell Distribution Width 12.9 % (11.5-14.5) Platelet Count 254 x10^3/uL (140-400) Neutrophils (%) (Auto) 57 % (31-73) Lymphocytes (%) (Auto) 34 % (24-48) Monocytes (%) (Auto) 5 % (0-9) Eosinophils (%) (Auto) 3 % (0-3) Basophils (%) (Auto) 0 % (0-3) Neutrophils # (Auto) 3.7 x10^3uL (1.8-7.7) Lymphocytes # (Auto) 2.2 x10^3/uL (1.0-4.8) Monocytes # (Auto) 0.3 x10^3/uL (0.0-1.1) Eosinophils # (Auto) 0.2 x10^3/uL (0.0-0.7) Basophils # (Auto) 0.0 x10^3/uL (0.0-0.2) Sodium Level 139 mmol/L (136-145) Potassium Level 4.3 mmol/L (3.5-5.1) Chloride Level 105 mmol/L (98-107) Carbon Dioxide Level 28 mmol/L (21-32) Anion Gap 6 (6-14) Blood Urea Nitrogen 13 mg/dL (7-20) Creatinine 0.8 mg/dL (0.6-1.0) Estimated GFR (Cockcroft-Gault) 82.1 BUN/Creatinine Ratio 16 (6-20) Glucose Level 100 mg/dL (70-99) H Calcium Level 8.8 mg/dL (8.5-10.1) Total Bilirubin 0.3 mg/dL (0.2-1.0) Aspartate Amino Transferase (AST) 47 U/L (15-37) H Alanine Aminotransferase (ALT) 76 U/L (14-59) H Alkaline Phosphatase 80 U/L (46-116) Total Protein 8.1 g/dL (6.4-8.2) Albumin 3.9 g/dL (3.4-5.0) Albumin/Globulin Ratio 0.9 (1.0-1.7) L Lipase 147 U/L (73-393) EKG EKG [] Radiology/Procedures Radiology/Procedures [] Course & Med Decision Making Course & Med Decision Making Pertinent Labs and Imaging studies reviewed. (See chart for details) [Epigastric pain diarrhea. Findings of enteritis with possible ileus/involving the small bowel obstruction on imaging. Patient required multiple doses of narcotic pain medications. Dr. Bryan to admit to [facility]. ] Samuel Disclaimer Samuel Disclaimer This electronic medical record was generated, in whole or in part, using a voice recognition dictation system. Departure Departure: Impression: Primary Impression: Abdominal pain Additional Impression: Ileus Disposition: XFER SHT-TRM HOSP Condition: STABLE Referrals: MARK PURI MD (PCP) Problem Qualifiers MOISES COOK DO Aug 24, 2019 08:19
[2019-08-24] MEDS ORDERED: MORPHINE SULFATE 4 MG/ML DISP.SYRIN. IV ONE (08:45)
[2019-08-24] MEDS ORDERED: IOHEXOL 300 MG/ML 75 ML VIAL. IV ONE (09:00)
[2019-08-24] MEDS ORDERED: CONTRAST GIVEN MC PRN (09:00)
--- NOTE | 2019-08-24 09:29 | RAD ---
CT ABD PELV W/ IV CONTRST ONLY Indication: Epigastric pain Technique: Postcontrast CT imaging was performed of the abdomen and pelvis, multiplanar reconstruction images submitted. No oral contrast was given. One or more of the following individualized dose reduction techniques were utilized for this examination: 1. Automated exposure control 2. Adjustment of the mA and/or kV according to patient size 3. Use of iterative reconstruction technique. Comparison: April 29, 2019 Findings: There is no significant abnormality of the limited visualized lung bases. There is again diffuse hepatic steatosis. Right lobe of the liver is enlarged about 22 cm longitudinal. There has been interval cholecystectomy, no fluid collection in gallbladder fossa. Both kidneys enhance, no hydronephrosis. 0.6 cm hypodense lesion of the inferior left kidney has density characteristics of a cyst. There is no adrenal nodularity. No new focal abnormality is identified of the spleen, pancreas, liver. Reportedly there has been appendectomy. Accurate evaluation of bowel is limited without oral contrast. There is appearance of degree of small bowel wall thickening in the left upper quadrant of the abdomen. There is no free fluid or free air. There are some air-fluid levels in the right colon and also the small bowel in the left abdomen.Segments of small bowel in the left abdomen are slightly dilated about 3 cm although the more distal small bowel is not significantly dilated. The colon is not dilated. There are again some nonspecific mesenteric nodes although previously seen adjacent mesenteric hazy and strandy change has decreased, also dominant left upper quadrant mesenteric node about 0.7 cm short axis dimension is smaller as previously about 1 cm. Other nodes are also less prominent. IMPRESSION: 1. There is degree of small bowel wall thickening in the left upper quadrant of the abdomen as may be seen with enteritis, also segments of small bowel in the left abdomen slightly dilated although mild small bowel ileus is favored over partial obstruction. 2. Previously seen mesenteric nodes are smaller, degree of stranding and hazy density of the mesentery also decreased. 3. There is again diffuse hepatic steatosis. There is hepatomegaly. 4. There is small inferior left renal cyst. Electronically signed by: Roger Rowland MD (08/24/2019 9:26 AM) [id number]
[2019-08-24] MEDS ORDERED: HALOPERIDOL LACT 5 MG/ML VIAL. IVP ONE (10:00)
[2019-08-24 11:28] VITALS: BP 124/84
== END 2019-08-24 12:00 | disposition short-term general hospital (02) ==
LOC: ER 07:00
DX: K56.7 Ileus, unspecified (principal); F32.9 Major depressive disorder, single episode, unspecified; E03.9 Hypothyroidism, unspecified; Z87.891 Personal history of nicotine dependence; Z90.49 Acquired absence of other specified parts of digestive tract; Z90.89 Acquired absence of other organs; Z90.710 Acquired absence of both cervix and uterus; Z88.6 Allergy status to analgesic agent; Z88.8 Allergy status to other drugs, medicaments and biological substances
CPT/HCPCS: 36415; 74177; 80053; 81001; 83690; 85025; 96374; 96375; 99285; J1630; J2270; J2405; J3010; J3490; Q9967